=== PATIENT | male | born 1965 | race Caucasian/White ===

== ENCOUNTER → 2018-11-14 13:44 | Outpatient (CLI) | payer BC, SELFPAY | PROVIDERS: PCP Physician Assistant; Visit Provider Family Medicine | DX: S61.012A Laceration without foreign body of left thumb without damage to nail, initial encounter (principal); S61.313A Laceration without foreign body of left middle finger with damage to nail, initial encounter | CPT/HCPCS: 11042; 11730; 99213 ==

== ENCOUNTER → 2018-11-16 14:51 | Outpatient (CLI) | payer BC, SELFPAY | PROVIDERS: PCP Physician Assistant; Visit Provider Family Medicine | DX: S61.012D Laceration without foreign body of left thumb without damage to nail, subsequent encounter (principal); S61.313D Laceration without foreign body of left middle finger with damage to nail, subsequent encounter | CPT/HCPCS: 99213; 99214 ==

== ENCOUNTER → 2018-11-23 10:18 | Outpatient (CLI) | payer BC, SELFPAY | PROVIDERS: PCP Physician Assistant; Visit Provider Family Medicine | DX: S61.012A Laceration without foreign body of left thumb without damage to nail, initial encounter (principal); S61.313A Laceration without foreign body of left middle finger with damage to nail, initial encounter | CPT/HCPCS: 11042 ==

== ENCOUNTER → 2018-11-30 08:43 | Outpatient (CLI) | payer BC, SELFPAY | PROVIDERS: PCP Physician Assistant; Visit Provider Family Medicine | DX: S61.012A Laceration without foreign body of left thumb without damage to nail, initial encounter (principal); S61.313A Laceration without foreign body of left middle finger with damage to nail, initial encounter | CPT/HCPCS: 97597 ==